=== PATIENT | female | born 1985 | race Caucasian/White ===

== ENCOUNTER 2017-04-10 12:23 | Emergency (ER) | payer OTHER ==
[~2017-04-10] VITALS: Ht 170.2 cm; Wt 118.4 kg
[2017-04-10 12:25] VITALS: BP 153/80
[2017-04-10] MEDS ORDERED: IBUPROFEN 200 MG TABLET PO ONE (13:30)
[2017-04-10] MEDS ORDERED: ACETAMINOPHEN 325 MG TABLET PO ONE (13:30)
[2017-04-10] MEDS ORDERED: IBUPROFEN 200 MG TABLET ONE (13:48)
[2017-04-10] MEDS ORDERED: ACETAMINOPHEN 325 MG TABLET ONE (13:48)
== END 2017-04-10 14:26 | disposition home or self-care (01) ==
LOC: ED 14:20
DX: S29.012A Strain of muscle and tendon of back wall of thorax, initial encounter (principal); V49.09XA Driver injured in collision with other motor vehicles in nontraffic accident, initial encounter; Y93.89 Activity, other specified; Y92.89 Other specified places as the place of occurrence of the external cause; Y99.8 Other external cause status
CPT/HCPCS: 72072; 81003; 99285